=== PATIENT | female | born 1995 | race Caucasian/White ===

== ENCOUNTER 2017-08-01 16:24 | Emergency (ER) | payer OTHER ==
[2017-08-01 16:32] VITALS: BP 117/64
[2017-08-01] MEDS ORDERED: ACETAMINOPHEN 325 MG TABLET PO STA (16:53)
--- NOTE | 2017-08-01 16:55 | ED Physician Documentation ---
PD HPI UPPER EXT INJURY - Stated complaint Stated Complaint: HAND LAC - Chief complaint Chief Complaint: Heent - History obtained from History obtained from: Patient, EMS - History of Present Illness Location: Right, Hand (palm) Type of injury: Laceration (she was reaching for food counter attendant blade (lying on her backseat car) and it cut into her palm.) Where injury occurred: Home Timing - onset: Today (30 minutes ago) Timing - details: Abrupt onset (she says it bled briskly with initial injury, no numbness nor weakness though.) Improved by: Rest Worsened by: Moving, Palpating Associated symptoms: No: Weakness, Numbness Contributing factors: No: Anticoagulated Similar symptoms before: Has not had sx before Recently seen: Not recently seen Review of Systems Skin: reports: Laceration (s) Neurologic: denies: Focal weakness, Numbness PD PAST MEDICAL HISTORY - Past Medical History Cardiovascular: None Respiratory: None Neuro: None Endocrine/Autoimmune: None - Past Surgical History Past Surgical History: No - Present Medications Home Medications: Ambulatory Orders Medication Instructions Recorded Confirmed No Known Home Medications [No 08/01/17 08/01/17 Known Home Medications] - Allergies Allergies/Adverse Reactions: Allergies Allergy/AdvReac Type Severity Reaction Status Date / Time No Known Drug Allergies Allergy Verified 08/01/17 16:32 - Social History Does the pt smoke?: No Smoking Status: Never smoker Does the pt drink ETOH?: No Does the pt have substance abuse?: No - Immunizations Immunizations are current?: Yes - POLST Patient has POLST: No PD ED PE NORMAL - Vitals Vital signs reviewed: Yes - General General: Alert and oriented X 3, No acute distress, Well developed/nourished - Derm Derm: Normal color, Warm and dry - Extremities Extremities: Other (right palm with 3 cm laceration mid palm, without FB. Normal sensation and movement of fingers without pain in palm. Good color and cap refill of fingers. Lac goes to fatty tissue. There is small vessel bleeding from wound edge just subcut. ) Results - Vitals Vitals: Vital Signs - 24 hr 08/01/17 16:29 Temperature 37.0 C Heart Rate 86 Respiratory 16 Rate Blood Pressure 117/64 O2 Saturation 99 Oxygen O2 Source Room air Procedures - Laceration (location) right palm Length in cm: 3 Wound type: Linear, Into subcut fat, Clean. No: Into muscle Neurovascular status: Sensory intact, Motor intact, Vascular intact Tendon involvement: Tendon intact Anesthesia: Lidocaine 2% with epi Wound Preparation: Irrigated copiously NS. No: FB identified Skin layer closure: Nylon, Running, Size #-0 - enter number (4), Sutures - enter # (8) Other: Patient tolerated well, No complications, Neurovascular intact, Dressing applied, Tetanus UTD Complexity: Simple PD MEDICAL DECISION MAKING - ED course Complexity details: considered differential, d/w patient Departure - Departure Disposition: 01 Home, Self Care Clinical Impression: Laceration of right palm Qualifiers: Encounter type: initial encounter Qualified Code(s): S61.411A - Laceration without foreign body of right hand, initial encounter Condition: Stable Record reviewed to determine appropriate education?: Yes Instructions: ED Laceration Hand Follow-Up: Lou Vasquez MD [Primary Care Provider] - Comments: It is okay to wash and shower. Clean off the wound twice a day with soap and water, or peroxide and water. Apply some antibiotic ointment to it to keep it moist. Also to watch for signs of infection such as purulence, redness or increasing pain. Return to your primary care or the ER at the specified time for suture removal. Suture removal in about 10 days. Tylenol or ibuprofen if needed for pains. Regular use of the hand is okay. You may want to bandage it to protect it. Discharge Date/Time: 08/01/17 17:15
[2017-08-01] MEDS ORDERED: ACETAMINOPHEN 325 MG TABLET PO ONE (17:13)
== END 2017-08-01 17:15 | disposition home or self-care (01) ==
LOC: ED 16:24
DX: S61.411A Laceration without foreign body of right hand, initial encounter (principal); W29.0XXA Contact with powered kitchen appliance, initial encounter; Y93.89 Activity, other specified; Y92.009 Unspecified place in unspecified non-institutional (private) residence as the place of occurrence of the external cause
CPT/HCPCS: 12002; 99283; A9270

== ENCOUNTER 2018-02-04 12:47 | Emergency (ER) | payer OTHER ==
[2018-02-04 12:57] VITALS: BP 111/64
--- NOTE | 2018-02-04 13:49 | XRAY Preliminary Report ---
Exam: XR FINGER(S) RT IMPRESSION: No bony abnormality. [facility] SITE ID: [id number]
--- NOTE | 2018-02-04 13:54 | XRAY Report ---
EXAM: RIGHT THUMB DIGIT RADIOGRAPHY EXAM DATE: 02/04/2018 01:41 PM. CLINICAL HISTORY: Crushing injury today. First interphalangeal joint pain. COMPARISON: None. TECHNIQUE: 3 views. FINDINGS: Bones: Normal. No fracture or bone lesion. Joints: Normal. No subluxations. Soft Tissues: Moderate edema centered at the first interphalangeal joint. IMPRESSION: No bony abnormality. [facility] Referring Provider Line: [phone] SITE ID: [id number]
--- NOTE | 2018-02-04 13:58 | ED Physician Documentation ---
PD HPI UPPER EXT INJURY - Stated complaint Stated Complaint: THUMB INJURY - Chief complaint Chief Complaint: Ext Problem - History obtained from History obtained from: Patient - History of Present Illness Location: Right, Finger (thumb) Type of injury: Twist Where injury occurred: Other (dog park) Timing - onset: How many hours ago (1) Timing - duration: Hours (1) Timing - details: Abrupt onset Pain level max: 7 Pain level now: 3 Improved by: Rest, Immobilization Worsened by: Moving, Palpating Associated symptoms: Discolored (bruising). No: Weakness, Numbness, Tingling Contributing factors: No: Anticoagulated Similar symptoms before: Has not had sx before - Additonal information Additional information: Patient injured her right thumb while at the [employer] today, and twisting a water fountain. She is left-handed. Review of Systems : denies: Now EGA Neurologic: denies: Focal weakness, Numbness PD PAST MEDICAL HISTORY - Past Medical History Past Medical History: No Cardiovascular: None Respiratory: None Endocrine/Autoimmune: None - Past Surgical History Past Surgical History: No - Present Medications Home Medications: Ambulatory Orders Medication Instructions Recorded Confirmed No Known Home Medications [No 08/01/17 02/04/18 Known Home Medications] - Allergies Allergies/Adverse Reactions: Allergies Allergy/AdvReac Type Severity Reaction Status Date / Time No Known Drug Allergies Allergy Verified 02/04/18 12:57 - Social History Does the pt smoke?: No Smoking Status: Never smoker Does the pt drink ETOH?: No Does the pt have substance abuse?: No - Immunizations Immunizations are current?: Yes - POLST Patient has POLST: No PD ED PE NORMAL - Vitals Vital signs reviewed: Yes - General General: Alert and oriented X 3, No acute distress - HEENT HEENT: Moist mucous membranes - Derm Derm: Warm and dry - Extremities Extremities: Other (R thumb - mild swelling and tenderness to the IP joint. small ecchymosis, full flexion and extension present against resistance. NVI o/ w normal exam.) - Neuro Neuro: Alert and oriented X 3 Results - Vitals Vitals: Oxygen O2 Source Room air - Rads (name of study) R thumb xray Radiology: Prelim report reviewed, EMP read contemporaneously, See rad report ( No acute abnormality) PD MEDICAL DECISION MAKING - ED course Complexity details: reviewed results, re-evaluated patient, considered differential, d/w patient ED course: Patient is a 22-year-old female with a right thumb injury to the IP joint. Placed in a thumb spica for comfort. I will have her follow-up with orthopedics for repeat evaluation on the swelling decreases. She is left- handed. She also may follow-up with her PCP. She does appear to have good range of motion against resistance. Possible partial tendon tear? Neurovascularly intact. X-ray is normal. Patient counseled regarding signs and symptoms for which I believe and urgent re-evaluation would be necessary. Patient with good understanding of and agreement to plan and is comfortable going home at this time This document was made in part using voice recognition software. While efforts are made to proofread this document, sound alike and grammatical errors may occur. Departure - Departure Disposition: 01 Home, Self Care Clinical Impression: Sprain of hand, thumb, right Qualifiers: Encounter type: initial encounter Sprain of finger site: unspecified site Qualified Code(s): S63.601A - Unspecified sprain of right thumb, initial encounter Condition: Good Instructions: ED Sprain Finger Follow-Up: [facility] [Provider Group] - Within 1 week your,doctor in 1 week [Other] Comments: Return if you worsen. Wear the brace for the next week. Follow up with your doctor or orthopedics in 1 week for re-evaluation of your thumb. Your xray is normal today. Discharge Date/Time: 02/04/18 14:02
== END 2018-02-04 14:02 | disposition home or self-care (01) ==
LOC: ED 12:47
DX: S63.601A Unspecified sprain of right thumb, initial encounter (principal); X50.9XXA Other and unspecified overexertion or strenuous movements or postures, initial encounter; Y92.830 Public park as the place of occurrence of the external cause
CPT/HCPCS: 73140; 99282